=== PATIENT | female | born 1945 | race Caucasian/White ===

== ENCOUNTER 2025-04-05 17:09 | Observation (INO) | payer MEDICARE, OTHER, SELFPAY ==
[2025-04-05] VITALS (12 sets, daily range): BP systolic 99–131; BP diastolic 54–84; BMI 25.1
[2025-04-05 12:19] LABS: % Basophils 0.7 % (0-2); % Eosinophils 0.8 % (0-6); % Immature Granulocytes 0.4 % (0-0.5); % Monocytes 8.6 % (1.7-9.3); % Neutrophils 69.5 % (42.2-75.2); Absolute Basophils 0.1 10^3/uL (0-0.2); Absolute Eosinophils 0.1 10^3/uL (0-0.7); Absolute Lymphocytes 2.1 10^3/uL (1.2-3.4); Absolute Monocytes 0.9 10^3/uL (0.1-0.6); Absolute Neutrophils 7.2 10^3/uL (1.4-6.5); Hematocrit 36.6 % (37.0-47.0); Hemoglobin 12.4 g/dL (12.0-16.0); Mean Corp Hgb Conc. 33.9 g/dL (33.0-37.0); Mean Corpuscular Hgb 33.9 pg (27.0-31.0); Nucleated Red Blood Cells % 0 %; Platelet Count 211 10^3/uL (130-400); Red Blood Cell Count 3.66 10^6/uL (4.20-5.40); Red Cell Dist. Width 12.1 % (11.5-14.5); White Blood Cell Count 10.3 10^3/uL (4.8-10.8)
--- NOTE | 2025-04-05 12:28 | ED.GENMED ---
History of Present Illness
General
Chief Complaint: Cardiac Symptoms
Time Seen by Provider: 04/05/25 12:16
History of Present Illness
History of Present Illness:
79-year-old female with history of aplastic anemia and ITP presenting to the emergency department for 3 weeks of generalized weakness and fatigue. Patient went to the primary care doctor today given her symptoms, was found to be in new onset atrial
fibrillation and sent to the ER for further assessment. Patient denies any known history of atrial fibrillation or cardiac issues. She does note that yesterday and today was having some palpitations. In the past several weeks has been having
dyspnea on exertion, denies chest pain. She does note history of PE in the past, however was discontinued on anticoagulation due to bleeding complications with her aplastic anemia. Denies any fever or cough. Denies abdominal pain or GI symptoms.
Denies additional acute medical complaints
Phy Exam
Physical Exam
Physical Exam:
General: Well-appearing, no clinical signs of dehydration, nontoxic and in no acute distress
HEENT: protecting airway
Neck: appears supple
CV: Tachycardic with irregular irregular rhythm
Resp: No accessory muscle use, no increased work of breathing, lungs clear to auscultation bilaterally
Abd: No distention
Extremities: No deformities, no swelling
Neuro: alert, no focal neurologic deficit
: deferred
Rectal: deferred
Psych: Normal affect
Skin: Intact
Scores
[id number] Score for Afib Stroke Risk
Age in Years (65=0, 65-74=1, >/=75=2): > or = 75
Sex (Female=+1): Female
Congestive Heart Failure History (Yes=+1): No
Hypertension History (Yes=+1): Yes
Stroke/TIA/Thromboembolism History (Yes=+2): No
Vascular Disease History (Yes=+1): No
Diabetes Mellitus (Yes=+1): No
Score: 4
Anticoagulation Recommendations: Recommend anticoagulation (as validated in nonvalvular fib)
Course
Orders/Labs/Results
Orders:
Orders
04/05/25 11:23
Electrocardiogram (*1) Urgent
Reason for Study: Abnormal EKG
04/05/25 12:04
Cardiac Monitoring- Treatment ONCE
IV Insert/Care/Rem.- Treatment PRN
04/05/25 12:12
Complete Blood Count/With Diff Urgent
Comprehensive Metabolic Panel Urgent
Troponin I Urgent
04/05/25 12:26
Diltiazem HCl [Cardizem] 10 mg IV NOW STA
04/05/25 12:27
CT Chest PE Study Urgent
Comment:
Reason For Exam: new onset afib, hx PE, no anticoagulation
04/05/25 14:00
Diltiazem 125 mg/125 ml Nss [Cardizem] 125 mg in 125 ml IV PER PROTOCOL
Currently infusing. Continue current dose and titrate:: Yes
Titrate to keep:: Heart rate 80-100 bpm
Titrate by mg/hr:: 5 mg/hr
Frequency of titrations (minutes):: 15
Maximum dose in mg/hr:: 15
04/05/25 14:02
EKG- Treatment ONCE
04/05/25 14:15
ECG [Electrocardiogram (*1)] Urgent
Reason for Study: Atrial Fibrillation
04/05/25 Dinner
2000 calorie (17 carb) Diabetic
At Your Request: Limited, Mini Bar Attendant Required
Does patient need a safe tray?: No
04/05/25 15:55
Apixaban [Eliquis] 5 mg PO ONCE ONE
04/05/25 16:49
Admit/Transfer Patient As Directed
Co-Sign Provider:
Level of Care: Observation services
Assign to:: Telemetry
Physician / Group: Htay
Diagnosis: New A-Fib
Reason for Telemetry: Arrhythmia
Date to Stop Telemetry: 04/08/25
Time to Stop Telemetry: 11:00
PRN Pain Medication Management As Directed
May give lesser potent ordered pain med per pt: Yes
preference::
Protocol:: Medication orders for pain may be administered in a
manner that supports deferring to patient preference
when the pt is:
- Requesting an ordered lesser potent pain medication.
Least to most potent pain medications are defined
as: acetaminophen < NSAID < tramadol < opioids
(morphine, oxycodone, hydromorphone).
- Requesting a lesser dose of the same medication IF
ORDERED.
- Requesting a less intrusive route of administration
if both routes are prescribed by the provider (PO <
IV).
04/05/25 16:52
Code Status As Directed
Resuscitation Status: Full Code
04/05/25 18:25
Acetaminophen [Tylenol] 650 mg PO Q4HPRN PRN
Dextrose 50%-Water [Dextrose 50% Syringe] 12.5 grams IV [id number] PRN
Glucagon [GlucaGen] 1 mg IM PRN PRN
04/05/25 18:25
CARDIOLOGY CONSULT Routine
Consulting Provider: Zackary Rojo.
Was physician already notified: Yes
Activity As Directed
Activity Level: Out of Bed-Early Mobility
With Assistance
Bedside Glucose Monitoring As Directed
Frequency: AC&HS
Additional Instructions:: Change to q6h if pt on TPN, tube feeding or not eating
Vital Signs As Directed
Frequency: Per unit guidelines
04/05/25 19:00
Repaglinide [Prandin] 4 mg PO AC
04/06/25 06:00
Echo 2D MMode Color/Doppler IN AM
Reason for Study: new Afib, h/o PFO
Cardiology Consult: Zackary Rojo
04/06/25 07:00
Basic Metabolic Panel IN AM
Complete Blood Count/No Diff IN AM
Hgba1c [Glycohemoglobin (HgbA1c)] IN AM
Magnesium IN AM
TSH Reflex To Free T4 IN AM
04/06/25 07:30
Insulin Aspart Corrective Low [Novolog Flexpen-Low Resistance] See Protocol SC AC
04/06/25 08:00
Dapagliflozin [Farxiga] 10 mg PO DAILY
Lisinopril [Zestril] 5 mg PO DAILY
04/08/25 11:00
DC Protocol for Telemetry ONCE
Abnormal Lab Results
04/05/25
12:12
RBC 3.66 L 10^6/uL
(4.20-5.40)
Hct 36.6 L %
(37.0-47.0)
MCV 100.0 H fL
(81.0-99.0)
MCH 33.9 H pg
(27.0-31.0)
Absolute Neuts (auto) 7.2 H 10^3/uL
(1.4-6.5)
Absolute Monos (auto) 0.9 H 10^3/uL
(0.1-0.6)
Lymphocytes % 20.0 L %
(20.5-51.1)
Potassium 5.2 H mmol/L
(3.5-5.1)
BUN 27 H mg/dl
(7-17)
Glucose 234 H mg/dl
(70-99)
04/05/25 12:12
04/05/25 12:12
Vital Signs
Initial and Last Documented VS:
Initial Vital Signs
Temp Pulse Resp BP Pulse Ox
98.2 F 155 22 131/84 97
04/05/25 11:33 04/05/25 11:33 04/05/25 11:33 04/05/25 11:33 04/05/25 11:33
Last Documented Vital Signs
Temp Pulse Resp BP Pulse Ox
98.4 F 94 16 118/66 95
04/06/25 16:04 04/06/25 16:04 04/06/25 16:04 04/06/25 16:04 04/06/25 16:04
MDM/Problems Addressed
MDM/Problems Addressed:
79-year-old female with history of aplastic anemia, ITP, PE and DVT not anticoagulated presenting for generalized weakness, fatigue, palpitations. Vital signs on arrival significant for tachycardia
On exam, patient is resting comfortably, no acute distress or discomfort. EKG obtained on patient's arrival, A-fib with RVR. Patient was called in by cardiology, aware of this new finding. Patient does not appear to be candidate for cardioversion
given onset of symptoms potentially 3 weeks ago, as well as no anticoagulation status. Will try to control heart rate with diltiazem. Will consult with cardiology. Will screen with laboratory analysis given patient's hematologic history. Will
also obtain CT of the chest, with remote history of PE, not anticoagulated, and unclear if provoked.
14:00 -patient has converted to sinus rhythm. Pending cardiology recommendations.
15:55 - Cardiology is recommending anticoagulation, however also recommending admission for observation overnight. Patient will be admitted to hospital service
*Pulse Oximetry
SaO2: 95
Oxygen Mode of Delivery: Room air
Patient hypoxic: no
*EKG
Interpreted by ED Provider?: Yes
EKG Intrepretation Date: 04/05/25
EKG Intrepretation Time: 12:30
Interpretation: abnormal
Heart Rate: 154
Rate: tachycardiac
Rhythm: a-fib
White: normal axis
QRS Pattern: normal QRS
Ischemia: non-specific ST changes
*Critical Care Note
Total Time (30-74mins, 75-104mins- exclusive of procedures): Not Applicable
ED Attending Note
-
Portions of this chart may have been created with voice recognition software.� Occasional wrong word or��sound alike� substitutions may have occurred due to the inherent limitations of voice recognition software.
Discharge Plan
Departure
Patient Disposition: Admit
Date of Disposition: 04/05/25
Time of Disposition: 15:59
Presentation/result/management discussed w/ accepting MD/DO: Hospitalist
Patient with high blood pressure during this ER visit?: No
Condition: Fair
Discharge Problem:
Atrial fibrillation, new onset
Interventions
Interventions:
*Risk Screen - Suicide Last Done: 04/05/25 11:33
*General Assessment Last Done: 04/05/25 11:33
*Neglect/Abuse Screening Last Done: 04/05/25 11:33
*ED- Fall Risk Assessment Last Done: 04/05/25 12:19
*ED COVID-19 Vaccine History Last Done: 04/05/25 19:30
*Nursing Disposition Last Done: 04/05/25 18:56
ED- Pulmonary Assessment Last Done: 04/05/25 12:16
ED- Cardiac Assessment Last Done: 04/05/25 12:16
Discharge Date and Time
Discharge Date/Time: 04/05/25 18:57
[2025-04-05 12:35] LABS: ALT (SGPT) 25 U/L (0-35); AST (SGOT) 22 U/L (14-36); Albumin 3.9 g/dl (3.5-5.0); Alkaline Phosphatase 109 U/L (38-126); Blood Urea Nitrogen 27 mg/dl (7-17); Calcium 9.7 mg/dl (8.4-10.2); Carbon Dioxide 23 mmol/L (22-30); Chloride 107 mmol/L (98-107); Estimated Creatinine Clearance 38 ml/min; Glucose 234 mg/dl (70-99); Potassium 5.2 mmol/L (3.5-5.1); Sodium 137 mmol/L (135-145); Total Bilirubin 0.7 mg/dl (0.2-1.3); Total Protein 6.4 g/dl (6.3-8.2); eGFR > 60.00
[2025-04-05] MEDS: CARDIZEM 10 MG IV (12:42)
[2025-04-05 12:47] LABS: Troponin I < 0.012 ng/ml
--- NOTE | 2025-04-05 15:44 | CON.CAR ---
Addendum entered and electronically signed by Zackary Rojo MD 04/05/25 18:16:
Attending addendum:
Pulmonary: Dr. Matilda Mcconnell (cell [phone])
Hematology: Dr. Rashaad Mcclain (cell [phone] and work: [phone])
Cardiology:
Patient seen and examined. PA notes reviewed. I reviewed old records in the patients 'MyChart' in [facility].
Briefly this is an 79 y/o female patient with a complicated past medical history. She has a history of ITP, aplastic anemia, and lymphoma and follows with Dr. Rashaad Mcclain. She has a history of DVT and PE in 08/2021 treated with Xarelto.
There was concern that she developed alveolar pulmonary hemorrhage due to supratherapeutic anticoagulation while on antifungal therapy in conjunction with DOAC. She completed 'a full course of therapy' for her DVT with Lovenox injections. She also
has pulmonary fibrosis with relatively stable PFT's as well as a HERNAN pulmonary nodule that has been stable on serial imaging studies.
She has been feeling increasingly fatigued over the past several weeks and went to see her PCP and was found to be in atrial fibrillation with a RVR. She was instructed to go to a local hospital for evaluation and management of her atrial
fibrillation and on arrival to [facility] she was found in atrial fibrillation with a rapid ventricular response. She was given IV cardizem for HR control and spontaneously converted to NSR. She has a history of pulmonary fibrosis
[id number] VAS score is 6 (hypertension, Age, DM, vascular disease, and female sex).
Physical Exam
GEN: AAO x 3. No acute distress
HEENT: NC/AT, sclera are anicteric, hearing and nares are normal. MMM
NECK: Supple. Normal JVP
LUNGS: Fine crackles at base to lower 1/3 of lung field bilaterally. Good air movement. No wheezing
CV: Regular rate and rhythm. Normal S1/S2. No S3, No S4. Murmur: None
ABD : Soft, NT, ND, No HSM. Bowel sounds are present.
EXT: No CCE
IMPRESSION/RECOMMENDATIONS:
-Atrial fibrillation with spontaneous conversion to NSR
[id number] VAS score is 6 (hypertension, Age, DM, vascular disease, and female sex) with estimated annual risk of stroke around 12% on no therapy, 10% on aspirin and 3-4% on DOAC.
Check echocardiogram. EF has been normal in the past
Start oral anticoagulation with reduced dose apixaban given age and weight less than 60kg. Additionally bleeding risk given hematologic issues
I did reach out to her regular biomass power plant manager, Dr. Rashaad Mcclain. We were in agreement that oral anticoagulation is the best treatment option but will need close monitoring of H/H and platelets.
Discontinue aspirin
-History of DVT/PE
On chronic aspirin which we should discontinue while or oral anticoagulation
Echocardiogram to assess PAP
-Hx of Pulmonary fibrosis
She follows closely with Dr. Dr. Matilda Mcconnell
-Hx of ITP, aplastic anemia, and lymphoma:
Hematology indices look reasonable
Will need to monitor closely on DOAC
Original Note:
Consultation
Consultation Request
Date/Time Consultation Requested: 04/05/2025
Date/Time Consultation Performed: 04/05/2025
Requesting Provider: Dr. Adkins in the ER
Performing Provider: Dr. Rojo
Reason for Consultation: Newly diagnosed paroxysmal atrial fibrillation of unclear duration
Medical History
-
History of Present Illness:
Patient came to [facility] ER with complaints of new A-fib found at her PCP office and cardiology is asked to evaluate. Patient has been feeling lethargic for weeks and was worried that this was related to previous ITP and lymphoma, she saw her PCP
through the [facility] system today and they found that she was in A-fib which is a new diagnosis. Patient was referred to [facility] ER and was in A-fib with RVR, ECG reviewed by me shows initial heart rate in the 150s. Patient was given Cardizem 10 mg IV x
1 and spontaneously converted to SR, Cardizem gtt was never started. Talked with patient, daughters and went through patient's [facility] portal to better understand her complex PMH. In 2012 patient had hemicolectomy for what ended up being a benign
adenoma, but at that time she was thrombocytopenic and was seen by hematology although did not require platelet transfusion. Patient lost to follow-up and seen again by hematology while at [facility] with a URI 04/2015 and at that time
was thrombocytopenic again, her platelet count was 8000. Patient had bone marrow biopsy and given a presumptive diagnosis of ITP and started on steroid therapy which stabilized platelet count. Steroids weaned and then on follow-up CBC platelet
count was down again 08/2015 and steroids were restarted, the patient had troublesome hyperglycemia so was switched to Rituxan. Patient tolerated Rituxan well initially with improvement in platelet count and it was stopped 02/20/2016. Then again as
a result of routine CBC monitoring the patient was noted to have recurrent thrombocytopenia and an attempt to resume Rituxan resulted in serial adverse reactions and eventually the medication was stopped and patient was placed back on steroid
therapy. Patient seemed to be doing well and then was started on posaconazole for fungal PNA in the fall 2020. Patient also had PE in fall 2020 and was started on Xarelto 15 mg BID. Patient then had admission to [facility] 09/05/2021 until 09/22/2021
for diffuse alveolar hemorrhage and her INR was 5.1, hematology felt that it may have been an interaction between Xarelto and posaconazole that drove her INR and may have contributed to the diffuse alveolar hemorrhage. There was also concern that
hemorrhage may have been precipitated by fungal PNA combined with possible bacterial PNA and the patient was also treated for bacterial PNA. At the end of the admission Xarelto had been stopped, posaconazole was continued and patient was started on
Lovenox. Going through patient's portal I was able to find her most recent pulmonology note and it states that she completed a regimen of Lovenox for her PE in 2020. Also during her 08/2021 admission she had transthoracic echo in the setting of
ongoing hypoxia that suggested a iitdg-fz-eoxk shunt by agitated saline concerning for PFO. Patient then had follow-up transthoracic echo 08/27/2024 that did not show color Doppler flow across the septum.
PMH:
h/o diffuse alveolar hemorrhage in the setting of supratherapeutic INR with Xarelto for PE and posaconazole for fungal pneumonia 08/2021
h/o PE, initially treated with Xarelto and then changed to Lovenox, completed therapeutic course over months 08/2021
ITP
Lymphoma
PAD with moderate B/L disease and reduced ABIs
h/o PFO with giguy-lp-rvnj shunt by agitated saline study 08/2021, not seen on color-flow Doppler echo 08/27/2024
IPF with negative ILD panel
Chronic stable left upper lobe nodule by last CT scan 12/28/2024
Hyperlipidemia on Repatha
HTN
DM 2
Past Medical History
Past Medical History: Other (in HPI)
Past Surgical History: Appendectomy, Bowel Resection (Hemicolectomy in 2012) and Cholecystectomy
Social History
Tobacco: Non-Smoker
Alcohol: None
Drug: None
Personal:
Living: With Family
Family History
Family History: Hypertension
Allergies / Home Medications
Allergy/AdvReac Type Severity Reaction Status Date / Time
Penicillins Allergy Hives Verified 04/05/25 11:33
�Medication �Instructions �Recorded �Confirmed �Type
lisinopril 5 mg tablet 5 mg PO DAILY Blood Pressure 04/05/25 04/05/25 History
Review of Systems
-
History Source: Patient and Family (2 daughters at bedside helping with HPI)
All other systems: Negative unless noted
Physical Exam
Vital Signs
Temp Pulse Resp BP Pulse Ox
98.2 F 88 14 99/55 95
04/05/25 14:00 04/05/25 14:30 04/05/25 14:30 04/05/25 14:00 04/05/25 14:30
GEN: NAD. AAOx3
HEENT: EOMI, MMM
LUNGS: RA. Bibasilar dry rales without wheeze
CV: Stach on tele. Reg, S1/S2, no murmur
ABD: soft, BS+, NT, ND
EXT: No clubbing, cyanosis, lesions or edema B/L
NEURO: Gross non-focal
SKIN: No rash
Lab Results
04/05/25 12:12
04/05/25 12:12
Troponin I < 0.012 ng/ml 04/05/25 12:12
Impression / Plan
-
PCP: Dr. Morris with [facility]
Card: Dr. Skyler Love with [facility]
Pulm: Dr. Matilda Mcconnell at [facility] medicine
Heme: Dr. Rashaad Mcclain at [facility]
Impression:
Admitted with newly diagnosed A-fib 04/05/2025
Newly diagnosed paroxysmal atrial fibrillation with spontaneous conversion to SR in the ER 04/05/2025
h/o diffuse alveolar hemorrhage in the setting of supratherapeutic INR with Xarelto for PE and posaconazole for fungal pneumonia 08/2021
h/o PE, initially treated with Xarelto and then changed to Lovenox, completed therapeutic course over months 08/2021
ITP
Lymphoma
PAD with moderate B/L disease and reduced ABIs
h/o PFO with upexj-ow-yfjv shunt by agitated saline study 08/2021, not seen on color-flow Doppler echo 08/27/2024
IPF with negative ILD panel
Chronic stable left upper lobe nodule by last CT scan 12/28/2024
Hyperlipidemia on Repatha
HTN
DM 2
CT chest 12/18/2024: Stable left upper lobe pulmonary nodule suggesting benign
Echo 09/01/2021: [facility] study, PFO with fmgkj-fs-qlbu shunt on agitated saline
Echo 08/27/2024: EF 65 to 70%, mild LVH, mild RV dilatation with normal function, mild MAC with trace MR, no AAS with mean pressure gradient 5 mmHg, interatrial septum intact
Plan:
-Patient came to [facility] ER with complaints of new A-fib found at her PCP office and cardiology is asked to evaluate. Patient has been feeling lethargic for weeks and was worried that this was related to previous ITP and lymphoma, she saw her PCP
through the [facility] system today and they found that she was in A-fib which is a new diagnosis. Patient was referred to [facility] ER and was in A-fib with RVR, ECG reviewed by me shows initial heart rate in the 150s. Patient was given Cardizem 10 mg IV x
1 and spontaneously converted to SR, Cardizem gtt was never started. Talked with patient, daughters and went through patient's [facility] portal to better understand her complex PMH. In 2012 patient had hemicolectomy for what ended up being a benign
adenoma, but at that time she was thrombocytopenic and was seen by hematology although did not require platelet transfusion. Patient lost to follow-up and seen again by hematology while at [facility] with a URI 04/2015 and at that time
was thrombocytopenic again, her platelet count was 8000. Patient had bone marrow biopsy and given a presumptive diagnosis of ITP and started on steroid therapy which stabilized platelet count. Steroids weaned and then on follow-up CBC platelet
count was down again 08/2015 and steroids were restarted, the patient had troublesome hyperglycemia so was switched to Rituxan. Patient tolerated Rituxan well initially with improvement in platelet count and it was stopped 02/20/2016. Then again as
a result of routine CBC monitoring the patient was noted to have recurrent thrombocytopenia and an attempt to resume Rituxan resulted in serial adverse reactions and eventually the medication was stopped and patient was placed back on steroid
therapy. Patient seemed to be doing well and then was started on posaconazole for fungal PNA in the fall 2020. Patient also had PE in fall 2020 and was started on Xarelto 15 mg BID. Patient then had admission to [facility] 09/05/2021 until 09/22/2021
for diffuse alveolar hemorrhage and her INR was 5.1, hematology felt that it may have been an interaction between Xarelto and posaconazole that drove her INR and may have contributed to the diffuse alveolar hemorrhage. There was also concern that
hemorrhage may have been precipitated by fungal PNA combined with possible bacterial PNA and the patient was also treated for bacterial PNA. At the end of the admission Xarelto had been stopped, posaconazole was continued and patient was started on
Lovenox. Going through patient's portal I was able to find her most recent pulmonology note and it states that she completed a regimen of Lovenox for her PE in 2020. Also during her 08/2021 admission she had transthoracic echo in the setting of
ongoing hypoxia that suggested a wdlhc-sy-zbud shunt by agitated saline concerning for PFO. Patient then had follow-up transthoracic echo 08/27/2024 that did not show color Doppler flow across the septum.
-Initial ECG reviewed by me shows A-fib with RVR. Follow-up ECG following spontaneous conversion to SR shows SR with overall low voltage and nonspecific anterolateral changes
-Initial troponin undetectable, no need to repeat.
-Check echo in a.m.
-Paroxysmal A-fib is a new diagnosis and was a likely cause for the patient's symptoms leading up to admission. Patient spontaneously converted to SR following Cardizem 10 mg IV x 1 in the ER and Cardizem gtt was never started.
-Will start Cardizem CD 120 mg daily, ordered by me
-Patient with complex hematologic history as outlined in detail above. Currently Hgb is stable at 12.4 and platelet count stable 211,000, all labs reviewed by me. Dr. Rojo was also able to connect with the patient's biomass power plant manager at [facility],
Sarahi. We will plan to start Eliquis tonight.
-Will ask ER to weigh patient on standing scale and if weight is less than 60 kg then her appropriate dose of Eliquis will be 2.5 mg BID
-Patient had lipids 01/13/2025, total cholesterol 137, triglycerides 160, HDL 56, LDL 54. She appears to chronically be on Repatha 140 mg every 2 weeks
-Patient with known type 2 diabetes and her hemoglobin A1c was 7.6% on 01/13/2025. Patient is chronically on Prandin and most recently was started on Jardiance 10 mg daily
-Patient is chronically on aspirin 81 mg daily and this may have been started following her PE, now that we are starting Eliquis we will stop aspirin.
[2025-04-05] MEDS: ELIQUIS 5 MG PO (16:10)
--- NOTE | 2025-04-05 16:54 | HPS.HSE ---
Addendum entered and electronically signed by Kamari Watkins MD 04/05/25 17:23:
I saw and examined the patient.
The THERMOSTAT MECHANIC or PA's note was reviewed and I agree with the note.
Comment:
This note serves as an addendum to the H&P by resourcing consultant KERI
Leatha DIETERICK
HPI
79F HX hypertension, hyperlipidemia, diabetes mellitus, and ITP who presents with weakness and new atrial fibrillation.
Reviewed VS:
PE
Respiratory: Clear and Non Labored Respirations
Cardiac: S1/S2 and Regular Rhythm; No Tachycardia
Relevant data
Last hospitalist admission:
ASSESSMENT & PLAN
New Onset Atrial Fibrillation- spontaneously converted to normal sinus rhythm in the ED
-Start Eliquis
-Start Cardizem
-Check Echocardiogram
Diabetes Mellitus, Type II
-Continue repaglinide and empagliflozin
-Check HgbA1c
-Monitor sugars and continue coverage insulin
Essential Hypertension
-Continue lisinopril with hold parameters
Hyperlipidemia
-Patient maintained on Repatha and Evolocumab
Peripheral Arterial Disease
-Transition from aspirin to Eliquis
Other Noted History
-Pulmonary Embolism 2020
-Alveolar/Pulmonary Hemorrhage
-ITP
-Lymphoma
DVT proph: Eliquis
Code Status: Full Code
Original Note:
Family Physician
-
Family Physician: Crystal Morris MD
Chief Complaint
-
Atrial Fibrillation
History of Present Illness
Patient is an 79 y/o female past medical history of hypertension, hyperlipidemia, diabetes mellitus, and ITP who presents with weakness and new atrial fibrillation. Patient reports she has been experiencing increased weakness and fatigue for the
past several weeks. She saw her primary care provider today who found patient to be in atrial fibrillation with rapid ventricular response, and referred her to the emergency department for evaluation. Patient was given Diltiazem 10mg IV x one dose
and spontaneously converted to normal sinus rhythm while in the emergency department. Patient has a very complicated hematologic history with prior ITP and prior episode of pulmonary/alveolar hemorrhage in setting of supratherapeutic INR due to
Xarelto and posaconazole.
Medical History
Past Medical History
Past Medical History: Reports Other
Additional Past Medical History:
Peripheral Arterial Disease
Diabetes Mellitus, Type II
Essential Hypertension
Hyperlipidemia
ITP
Lymphoma
Pulmonary Embolism in 2020
Pulmonary Hemorrhage in setting of supratherapeutic INR with Xarelto for PE and posconazole
Fungal Pneumonia
Past Surgical History: Reports Other
Additional Past Surgical History:
Appendectomy
Cholecystectomy
Hemicolectomy
Social History
Tobacco: Non-smoker
Alcohol: None
Family History
Family History: Not pertinent
Allergies / Home Medications
Allergies reflects when Allergies were last updated in [facility].
Home Medications with original date entered in [facility]
Allergy/Medication List:
Allergies
Allergy/AdvReac Type Severity Reaction Status Date / Time
Penicillins Allergy Hives Verified 04/05/25 11:33
Home Medications
Valtrex 500 mg PO DAILY 04/05/25
albuterol 90 mcg/actuation aerosol inhaler inhalation 04/05/25
aspirin 81 mg tablet,delayed release 81 mg PO DAILY 04/05/25
azelastine 137 mcg (0.1 %) nasal spray 1 spray intranasal BID 04/05/25
brimonidine 0.2 % eye drops 1 drp BOTH EYES BID 04/05/25
calcium 250 mg (as carbonate)-vitamin D3 3.125 mcg (125 unit) tablet (Oyster Shell + D3) 1 tab PO DAILY 04/05/25
empagliflozin 10 mg tablet (Jardiance) 10 mg PO DAILY 04/05/25
evolocumab 140 mg/mL subcutaneous pen injector 140 mg SC Q2W 04/05/25
icosapent ethyl 1 gram capsule 1 g PO BID 04/05/25
latanoprost 0.005 % eye drops 1 drp ophthalmic (eye) QPM 04/05/25
lisinopril 5 mg tablet 5 mg PO DAILY Blood Pressure 04/05/25
repaglinide 2 mg tablet 4 mg PO TID 04/05/25
Review of Systems
-
A 12 point ROS was completed and negative except as noted: Yes
Constitutional: Denies Fever or Chills
Respiratory: Denies Cough
Cardiac: Denies Chest Pain or Palpitations
Physical Exam
Vital Signs
Vital Signs
Temp Pulse Resp BP Pulse Ox
97.9 F 91 16 112/73 93
04/05/25 16:00 04/05/25 16:00 04/05/25 16:00 04/05/25 16:00 04/05/25 16:00
Physical Exam
General: Comfortable and Conversant
HEENT: Anicteric and Moist mucous membranes
Respiratory: Clear and Non Labored Respirations
Cardiac: S1/S2 and Regular Rhythm; No Tachycardia
GI: Soft and Non Tender
Rectal: Deferred by Provider
Musculoskeletal: No Clubbing, No Cyanosis and No Edema
Skin: Warm and Dry
Neuro: Awake, Alert, Oriented and Nonfocal/grossly intact
Psych: Calm
Laboratory Results
-
04/05/25 12:12
04/05/25 12:12
Laboratory Results
Total Bilirubin 0.7 mg/dl (0.2-1.3) 04/05/25 12:12
AST 22 U/L (14-36) 04/05/25 12:12
ALT 25 U/L (0-35) 04/05/25 12:12
Alkaline Phosphatase 109 U/L (38-126) 04/05/25 12:12
Troponin I < 0.012 ng/ml 04/05/25 12:12
Data Reviewed
-
Medical Tests (Nuc Med, Echo, EKG etc): Other (ECG)
Lab Data: Labs Reviewed by me
Impression/Plan
-
New Onset Atrial Fibrillation
-Patient spontaneously converted to normal sinus rhythm in the ED
-Start Eliquis for anticoagulation - Monitor counts closely
-Start Cardizem
-Check Echocardiogram
Diabetes Mellitus, Type II
-Continue repaglinide and empagliflozin
-Check HgbA1c
-Monitor sugars and continue coverage insulin
Essential Hypertension
-Continue lisinopril with hold parameters
Hyperlipidemia
-Patient maintained on Repatha and Evolocumab
Peripheral Arterial Disease
-Transition from aspirin to Eliquis
Other Noted History
-Pulmonary Embolism 2020
-Alveolar/Pulmonary Hemorrhage
-ITP
-Lymphoma
DVT proph: Eliquis
Code Status: Full Code
--- NOTE | 2025-04-05 18:45 | PTCARENOTE ---
1839 Pt arrived from ER via stretcher. Alert and oriented x 3. Denies discomfort. Vs stable. Noted MD orders. Place pt on heart monitor (Normal Sinus Rhythm) heart rate 80's to 90's. Explain to pt able to have a diabetic diet, pt ordered dinner
meal. Report given to material handler 1st shift nurse.
[2025-04-05 19:40] LABS: Glucose - Point of Care 148 mg/dl (70-99)
[2025-04-05] MEDS: PRANDIN PO (20:04)
[2025-04-05 21:50] LABS: Glucose - Point of Care 224 mg/dl (70-99)
[2025-04-05] MEDS: XALATAN OPHTHALMIC SOLUTION 1 DROP BOTH EYES (23:09)
[2025-04-05] MEDS: ALPHAGAN 0.2% EYE DROPS BOTH EYES (23:18)
[2025-04-06 03:00] VITALS: BP 104/51
[2025-04-06] MEDS: ELIQUIS 2.5 MG PO ×2 (07:11→17:02)
--- NOTE | 2025-04-06 07:49 | W.PN.HOSP.TC ---
Today's Communication/Plan
-
Discharge
Assessment / Plan
Assessment / Plan
Physical Exam
General: no acute distress, appears comfortable
HEENT: Anicteric and Moist mucous membranes
Respiratory: Clear and Non Labored Respirations
Cardiac: S1/S2 and Regular Rhythm; No Tachycardia
GI: Soft and Non Tender
Musculoskeletal: No Clubbing, No Cyanosis and No Edema
Skin: Warm and Dry
Neuro: AOx3 conversant coherent
Psych: Calm
79F HTN HLD DM ITP here with new onset afib rvr spontaneously converted in ER with once IV cardizem.
New Onset Atrial Fibrillation
-Patient spontaneously converted to normal sinus rhythm in the ED
-ECHO appreciated EF 55% no significant valve abn's
-Cardio eval appreciated Cont PO Cardizem, Eliquis 2.5 mg BID (renally dosed for age and weight) replacing home med ASA
Diabetes Mellitus, Type II
-Continue repaglinide and empagliflozin
-A1c 7.3
-Monitor sugars and continue coverage insulin
Essential Hypertension
-Continue lisinopril with hold parameters
Hyperlipidemia
-Patient maintained on Repatha and Evolocumab
Peripheral Arterial Disease
-Transitioned from aspirin to Eliquis as above
Other Noted History
-Pulmonary Embolism 2020
-Alveolar/Pulmonary Hemorrhage
-ITP
-Lymphoma
DVT proph: Eliquis
Code Status: Full Code
Medically stable for discharge home with outpatient follow up recommendations.
Total Time Preparing Discharge __40 minutes including examination of the patient, summary of the hospital stay, instructions for continuing care to all relevant caregivers; and preparation of discharge records, prescriptions, and referral
forms if necessary.
Anticipated Discharge: Today
Subjective/Interval History
-
Date of Service: April 06, 2025
Seen and examined at bedside in no acute distress sitting up comfortably in chair. Overall reports feeling well since spontaneous cardioversion back to NSR. Denies new acute issues including chest pain palpitations shortness of breath. Eager to
go home.
Objective Data
-
Labs:
Laboratory Results
04/06/25
07:00
WBC Pending
Hgb Pending
Hct Pending
Plt Count Pending
Sodium Pending
Potassium Pending
Chloride Pending
Carbon Dioxide Pending
BUN Pending
Creatinine Pending
Glucose Pending
Calcium Pending
Vital Signs:
Vital Signs
Temp Pulse Resp BP Pulse Ox
98.6 F 88 20 104/51 94
04/06/25 03:00 04/06/25 03:00 04/06/25 03:00 04/06/25 03:00 04/06/25 03:00
I&O
04/05/25 04/06/25 04/07/25
06:59 06:59 06:59
Intake Total 600 / 600
Balance 600 / 600
[2025-04-06 07:57] LABS: Glucose - Point of Care 157 mg/dl (70-99)
[2025-04-06] MEDS: PRANDIN 4 MG PO ×3 (08:02→17:02)
[2025-04-06] MEDS: VALTREX 500 MG PO (08:02)
[2025-04-06] MEDS: FARXIGA 10 MG PO (08:02)
[2025-04-06] MEDS: ALPHAGAN 0.2% EYE DROPS 1 DROP BOTH EYES (08:02)
[2025-04-06 08:06] VITALS: BP 115/63
[2025-04-06 08:17] LABS: Hematocrit 36.2 % (37.0-47.0); Hemoglobin 12.5 g/dL (12.0-16.0); Mean Corp Hgb Conc. 34.5 g/dL (33.0-37.0); Mean Corpuscular Hgb 34.5 pg (27.0-31.0); Mean Platelet Volume 10.1 fL (7.4-10.4); Platelet Count 221 10^3/uL (130-400); Red Blood Cell Count 3.62 10^6/uL (4.20-5.40); Red Cell Dist. Width 12.5 % (11.5-14.5)
[2025-04-06 08:49] LABS: Glycohemoglobin (HgbA1c) 7.3 % (4.0-5.6)
[2025-04-06 09:03] VITALS: BP 114/64; BMI 24.5
[2025-04-06 09:14] LABS: Blood Urea Nitrogen 23 mg/dl (7-17); Calcium 9.2 mg/dl (8.4-10.2); Carbon Dioxide 22 mmol/L (22-30); Chloride 108 mmol/L (98-107); Estimated Creatinine Clearance 33 ml/min; Glucose 149 mg/dl (70-99); Magnesium 2.3 mg/dl (1.6-2.3); Potassium 4.8 mmol/L (3.5-5.1); Sodium 137 mmol/L (135-145); eGFR > 60.00
[2025-04-06 09:31] LABS: TSH Reflex To Free T4 2.02 uIU/ml (0.47-4.68)
[2025-04-06 10:59] VITALS: BP 94/63
[2025-04-06 12:07] LABS: Glucose - Point of Care 209 mg/dl (70-99)
--- NOTE | 2025-04-06 15:36 | CM ---
Patient seen bedside, initial assessment completed. Patient is an 79 y/o female past medical history of hypertension, hyperlipidemia, diabetes mellitus, and ITP who presents with weakness and new atrial fibrillation.
Patient resides w/ spouse in a 2STH, no steps from the front, 1 step from the back door. Patient is independent in all areas, has shower chair in the bathroom. Denies SNF hx, OP therapy in the past, home PT through [facility] about 3 years ago.
Address, point of contact and insurance verified
PCP: Crystal Morris
Pharmacy: [facility]
Patient admitted obs. TAYLOR form verbally reviewed, copy provided, copy on chart
Plan: Anticipate home, no needs
[2025-04-06 16:04] VITALS: BP 118/66
[2025-04-06 16:58] LABS: Glucose - Point of Care 168 mg/dl (70-99)
--- NOTE | 2025-04-06 17:53 | W.PN.CARDCBS ---
Today's Communication / Plan
-
Remains in sinus rhythm
Cont Diltiazem and Eliquis 2.5mg po bid.
Ok for D/C
Impression / Plan
-
PCP: Dr. Morris with [facility]
Card: Dr. Skyler Love with [facility]
Pulm: Dr. Matilda Mcconnell at [facility]
Heme: Dr. Rahsaad Mcclain at [facility]
Impression:
Admitted with newly diagnosed A-fib 04/05/2025
Newly diagnosed paroxysmal atrial fibrillation with spontaneous conversion to SR in the ER 04/05/2025
h/o diffuse alveolar hemorrhage in the setting of supratherapeutic INR with Xarelto for PE and posaconazole for fungal pneumonia 08/2021
h/o PE, initially treated with Xarelto and then changed to Lovenox, completed therapeutic course over months 08/2021
ITP
Lymphoma
PAD with moderate B/L disease and reduced ABIs
h/o PFO with [id number] shunt by agitated saline study 08/2021, not seen on color-flow Doppler echo 08/27/2024
IPF with negative ILD panel
Chronic stable left upper lobe nodule by last CT scan 12/28/2024
Hyperlipidemia on Repatha
HTN
DM 2
CT chest 12/18/2024: Stable left upper lobe pulmonary nodule suggesting benign
Echo 09/01/2021: [facility] study, PFO with [id number] shunt on agitated saline
Echo 08/27/2024: EF 65 to 70%, mild LVH, mild RV dilatation with normal function, mild MAC with trace MR, no AAS with mean pressure gradient 5 mmHg, interatrial septum intact
Plan:
-Remains in sinus rhythm. Cont Eliquis/Diltiazem.
-Patient with complex hematologic history as outlined in detail above. Currently Hgb is stable at 12.4 and platelet count stable 211,000, all labs reviewed by me. Dr. Rojo was also able to connect with the patient's security and compliance analyst at [facility],
Sarahi.
-Patient had lipids 01/13/2025, total cholesterol 137, triglycerides 160, HDL 56, LDL 54. She appears to chronically be on Repatha 140 mg every 2 weeks
-Patient with known type 2 diabetes and her hemoglobin A1c was 7.6% on 01/13/2025. Patient is chronically on Prandin and most recently was started on Jardiance 10 mg daily
-Patient is chronically on aspirin 81 mg daily and this may have been started following her PE, now that we are starting Eliquis we will stop aspirin.
Progress Note - [employer]
Subjective
Date of Service: April 06, 2025
no new chest pains. in sinus rhythm
Objective
Labs:
04/06/25 07:00
04/06/25 07:00
Labs
Hgb 12.5 g/dL (12.0-16.0) 04/06/25 07:00
Hct 36.2 % (37.0-47.0) L 04/06/25 07:00
Plt Count 221 10^3/uL (130-400) 04/06/25 07:00
Sodium 137 mmol/L (135-145) 04/06/25 07:00
Potassium 4.8 mmol/L (3.5-5.1) 04/06/25 07:00
BUN 23 mg/dl (7-17) H 04/06/25 07:00
Creatinine 0.9 mg/dL (0.6-1.0) 04/06/25 07:00
Glucose 149 mg/dl (70-99) H 04/06/25 07:00
Troponins
04/05/25
12:12
Troponin I < 0.012
Vital Signs and I&O:
Vital Signs
Temp Pulse Resp BP Pulse Ox
98.4 F 94 16 118/66 95
04/06/25 16:04 04/06/25 16:04 04/06/25 16:04 04/06/25 16:04 04/06/25 16:04
Vital Signs
Temp Pulse Resp BP Pulse Ox
98.4 F 94 16 118/66 95
04/06/25 16:04 04/06/25 16:04 04/06/25 16:04 04/06/25 16:04 04/06/25 16:04
Intake & Output
04/04/25 04/05/25 04/06/25 04/07/25
06:59 06:59 06:59 06:59
Intake Total 600 / 600
Balance 600 / 600
Physical Exam
Physical Exam
GEN: No distress, awake, Ox3
HEENT: supple, anicteric, mmm
LUNGS: CTA, no wheezes/rales
CV: Reg, S1/S2, 1/6 syst LSB, no gallop
ABD: soft, BS+, NT/ND
EXT: No edema
NEURO: Gross non-focal
SKIN: No rash
--- NOTE | 2025-04-06 18:23 | W.DCSUMMARY ---
Discharge Summary
Discharge Data
Date of Admission: 04/05/25
Date of Discharge: 04/06/25
-
Pending Results: No
Discharge Plan
-
Patient Disposition: Home (Routine Discharge)
Discharge Diagnosis/Procedures: New Onset Atrial Fibrillation with Rapid Ventricular Rate spontaneously converted back to normal sinus rhythm
Hypertension
Hyperlipidemia
Diabetes
Right Upper Lobe Lung Nodule 8 mm
Condition: Fair
Diet: Diabetic, Carb Controlled
Activity: As tolerated
Driving Restrictions: As prior to admission
Bathing Restrictions: None
Blood Work: Repeat CBC and BMP with primary care provider in 1 week of discharge
Others Tests: Right Upper Lobe Lung Nodule [address] Discuss with your primary care provider if follow up CT is warranted.
Activity Restrictions/Additional Instructions:
Follow up with primary care provider in 1 week of discharge and Cardiology in 1-2 weeks of discharge.
Referrals:
Skyler Love MD [Non-Admitting Privileges] - in one to two weeks
Referral Note: Follow up with Dr. Love for your newly diagnosed atrial fibrillation.
Crystal Morris MD [Family Provider, Internal Medicine] - in one week
Additional Discharge Medication Instructions: - Stop taking aspirin
- Start taking Eliquis 2.5 mg twice daily to help prevent blood clots due to atrial fibrillation
- Start taking Cardizem CD 120 mg daily to help slow heart rate and reduce the risk of recurrent atrial fibrillation
Prescriptions:
New
diltiazem HCl 120 mg Capsule,Extended Release 24hr
120 mg PO DAILY Qty: 30 3RF
Eliquis 2.5 mg Tablet
2.5 mg PO Q12H Qty: 60 3RF
Continued
lisinopril 5 mg Tablet
5 mg PO DAILY
repaglinide 2 mg Tablet
4 mg PO TIDWMEAL
Jardiance 10 mg Tablet
10 mg PO DAILY
latanoprost 0.005 % Drops
1 drp BOTH EYES HS
brimonidine 0.2 % Drops
1 drp BOTH EYES BID
acetaminophen [Tylenol] 325 mg Tablet
650 mg PO BIDPRN PRN (Reason: mild pain)
valacyclovir 500 mg tablet
500 mg PO DAILY
albuterol sulfate 90 mcg/actuation Hfa Aerosol Inhaler
2 puff INHALATION R Q4HPRN PRN (Reason: sob)
icosapent ethyl [Vascepa] 1 gram capsule
1 g PO BID
Repatha SureClick 140 mg/mL pen injector
140 mg SC Q2W
cholecalciferol (vitamin D3)
2 gummy PO DAILY
Discontinued
aspirin 81 mg Tablet,Delayed Release (Dr/Ec)
81 mg PO DAILY
Discharge Orders:
Discharge Patient (As Directed); Ordered 04/06/25
Ordered By: Amor Martinez
Discharge Date and Time
Print Language: SAMOAN
== END 2025-04-06 19:07 | disposition home or self-care (01) ==
LOC: 4 WEST ACU 17:09
PROVIDERS: Emergency Medicine; Physician Assistant Medical; ADMITTING PHYSICIAN Internal Medicine; ATTENDING PHYSICIAN Internal Medicine; CONSULT PHYSICIAN Internal Medicine Interventional Cardiology; EMERGENCY PHYSICIAN Student in an Organized Health Care Education/Training Program; FAMILY PHYSICIAN Student in an Organized Health Care Education/Training Program
DX: I48.0 Paroxysmal atrial fibrillation (principal); R53.1 Weakness; E11.65 Type 2 diabetes mellitus with hyperglycemia; D69.3 Immune thrombocytopenic purpura; Z79.82 Long term (current) use of aspirin; I11.9 Hypertensive heart disease without heart failure; Z79.899 Other long term (current) drug therapy; E11.51 Type 2 diabetes mellitus with diabetic peripheral angiopathy without gangrene; E78.5 Hyperlipidemia, unspecified; Z86.711 Personal history of pulmonary embolism; R91.1 Solitary pulmonary nodule
CPT/HCPCS: 71275; 80048; 80053; 82962; 83036; 83735; 84443; 84484; 85025; 85027; 93005; 93306; 96374; 96376; 99285; G0378; Q9967